=== PATIENT | male | born 1995 | race Hispanic/Latino ===

== ENCOUNTER 2017-10-20 00:36 | Emergency (ER) | payer OTHER ==
[2017-10-20] MEDS ORDERED: METOCLOPRAMIDE 5 MG TAB ONE (02:05)
[2017-10-20] MEDS ORDERED: DIPHENHYDRAMINE 25 MG TAB/CAP ONE (02:05)
[2017-10-20] MEDS ORDERED: KETOROLAC 30 MG/ML INJ ONE (02:05)
--- NOTE | 2017-10-20 04:49 | EDPHYS ---
Physician Documentation [facility] Name: Ishaan Savage Age: 21 yrs Sex: Male : 1995 Arrival Date: 10/20/2017 Time: 00:40 Bed 20 Private MD: ED Physician Jose J Purvis HPI: 10/20 01:53 This 21 yrs old Male presents to ER via Ambulatory with complaints of Headache.ps1 01:53 The patient complains of pain to the left presybeterian. The patient describes the headache as ps1 throbbing. Onset: The symptoms/episode began/occurred at 21:30. Associated signs and symptoms: Pertinent positives: Photophobia Pertinent negatives: dizziness, fever, sinus tenderness, vomiting, weakness. Severity of symptoms: At its worst the pain was moderate, in the emergency department the pain has improved, moderately. Headache History: Denies prior headaches. the symptoms are aggravated by lights, noise. 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 . Historical: - Allergies: 00:57 No Known Allergies; ao - Home Meds: 00:57 None [Active]; ao - Immunization history:: Adult Immunizations up to date. - Social history:: Smoking status: Patient uses tobacco products. ROS: 01:53 Constitutional: Negative for fever, chills, and weight loss, Eyes: Negative for injury, ps1 pain, redness, and discharge, ENT: Negative for injury, pain, and discharge, Neck: Negative for injury, pain, and swelling, Cardiovascular: Negative for chest pain, palpitations, and edema, Respiratory: Negative for shortness of breath, cough, wheezing, and pleuritic chest pain, Abdomen/GI: Negative for abdominal pain, nausea, vomiting, diarrhea, and constipation, Back: Negative for injury and pain, MS/Extremity: Negative for injury and deformity, Skin: Negative for injury, rash, and discoloration. 01:53 Neuro: Positive for headache. Exam: 01:53 Constitutional: This is a well developed, well nourished patient who is awake, alert, ps1 and in no acute distress. Head/Face: Normocephalic, atraumatic. Eyes: Pupils equal round and reactive to light, extra-ocular motions intact. Lids and lashes normal. Conjunctiva and sclera are non-icteric and not injected. ENT: Nares patent. No nasal discharge, no septal abnormalities noted. Tympanic membranes are normal and external auditory canals are clear. Oropharynx with no redness, swelling, or masses, exudates, or evidence of obstruction, uvula midline. Mucous membranes moist. Neck: Trachea midline, no thyromegaly or masses palpated, and no cervical lymphadenopathy. Supple, full range of motion without nuchal rigidity, or vertebral point tenderness. No Meningismus. Chest/axilla: Normal chest wall appearance and motion. Nontender with no deformity. No lesions are appreciated. Cardiovascular: Regular rate and rhythm. No gallops, murmurs, or rubs. Normal PMI, no JVD. No pulse deficits. Respiratory: Lungs have equal breath sounds bilaterally, clear to auscultation and percussion. No rales, rhonchi or wheezes noted. No increased work of breathing, no retractions or nasal flaring. Abdomen/GI: Soft, non-tender, with normal bowel sounds. No distension or tympany. No guarding or rebound. No evidence of tenderness throughout. MS/ Extremity: Pulses equal, no cyanosis. Neurovascular intact. Full, normal range of motion. Neuro: Awake and alert, GCS 15, oriented to person, place, time, and situation. Cranial nerves II-XII grossly intact. Sensory grossly intact. Vital Signs: 00:55 BP 127 / 90; Pulse 63; Resp 16; Temp 97.9; Pulse Ox 97% on R/A; Weight 86.18 kg (R); ao Height 5 ft. 7 in. (170.18 cm) (R); Pain 10/10; 01:30 BP 108 / 75; Pulse 66; Resp 16; Pulse Ox 98% on R/A; Pain 0/10; ao 02:27 BP 120 / 93; Pulse 69; Resp 16; Pulse Ox 98% on R/A; Pain 0/10; ao 00:55 Body Mass Index 29.76 (86.18 kg, 170.18 cm) ao MDM: 01:53 Data reviewed: vital signs, nurses notes. Medication response:. ps1 02:33 Patient medically screened. ps1 Administered Medications: 02:24 Drug: Reglan 10 mg Route: PO; ao 03:28 Follow up: Response: No adverse reaction ao 02:24 Drug: Benadryl 50 mg Route: PO; ao 03:28 Follow up: Response: No adverse reaction ao 02:25 Drug: TORadol 30 mg Route: IM; Site: right gluteus; ao 03:28 Follow up: Response: No adverse reaction ao Disposition: 10/20/17 03:17 Discharged to Home. Impression: Migraine. - Condition is Stable. - Discharge Instructions: Migraine Headache. - Work release form, Medication Reconciliation Form, Thank You Letter, Antibiotic Education, Prescription Opioid Use form. - Follow up: Private Physician; When: As needed; Reason: Recheck today's complaints, Continuance of care, Re-evaluation by your physician. Follow up: Emergency Department; When: As needed; Reason: Fever > 102 F, Worsening of condition. - Problem is new. - Symptoms have improved. Signatures: Harley Ballesteros RN RN ao Singer, Phillip, MD MD ps1
--- NOTE | 2017-10-20 04:49 | ER ---
Nurse's Notes [facility] Name: Ishaan Savage Age: 21 yrs Sex: Male : 1995 Arrival Date: 10/20/2017 Time: 00:40 Bed 20 Private MD: Diagnosis: Migraine Presentation: 10/20 00:52 Presenting complaint: Patient states: "I have a headache that started few hours ago." ao Patient describes his headache in the frontal area as sharp that comes and goes. Patient is positive for nausea. Patient rates his pain at 10/10 in a pain scale. Transition of care: patient was not received from another setting of care. Onset of symptoms was October 19, 2017 at 21:00. Initial Sepsis Screen: Does the patient meet any 2 criteria? No. Patient's initial sepsis screen is negative. Does the patient have a suspected source of infection? No. Patient's initial sepsis screen is negative. Care prior to arrival: Medication(s) given: Tylenol, 325 mg. 00:52 Method Of Arrival: Ambulatory ao 00:52 Acuity: NAM 3 ao Triage Assessment: 00:57 Headache History: Denies prior headaches. General: Appears in no apparent distress. ao comfortable, Behavior is calm, cooperative, appropriate for age. General: Reports Headache. Pain: Complains of pain in Headache Pain currently is 10 out of 10 on a pain scale. Pain began 3 hours ago. Also complains of no other associated symptoms. EENT: No signs and/or symptoms were reported regarding the EENT system. Neuro: Level of Consciousness is awake, alert, obeys commands, Oriented to person, place, time, situation, Moves all extremities. Speech is normal, Facial symmetry appears normal, Pupils are PERRLA. Cardiovascular: Capillary refill < 3 seconds Patient's skin is warm and dry. Respiratory: Airway is patent Respiratory effort is even, unlabored, Respiratory pattern is regular, symmetrical. GI: No signs and/or symptoms were reported involving the gastrointestinal system. : No signs and/or symptoms were reported regarding the genitourinary system. Derm: Skin is intact, Skin temperature is warm. Musculoskeletal: No signs and/or symptoms reported regarding the musculoskeletal system. Historical: - Allergies: 00:57 No Known Allergies; ao - Home Meds: 00:57 None [Active]; ao - Immunization history:: Adult Immunizations up to date. - Social history:: Smoking status: Patient uses tobacco products. Screenin:57 Abuse screen: Denies threats or abuse. Denies injuries from another. Nutritional ao screening: No deficits noted. Tuberculosis screening: No symptoms or risk factors identified. Fall Risk None identified. Assessment: 01:20 General: See triage note for full assessment. ao 02:26 Reassessment: Patient appears in no apparent distress at this time. No changes from ao previously documented assessment. Patient and/or family updated on plan of care and expected duration. Pain level reassessed. Patient is alert, oriented x 3, equal unlabored respirations, skin warm/dry/pink. 02:26 Pain: Complains of pain in Headache. ao Vital Signs: 00:55 BP 127 / 90; Pulse 63; Resp 16; Temp 97.9; Pulse Ox 97% on R/A; Weight 86.18 kg (R); ao Height 5 ft. 7 in. (170.18 cm) (R); Pain 10/10; 01:30 BP 108 / 75; Pulse 66; Resp 16; Pulse Ox 98% on R/A; Pain 0/10; ao 02:27 BP 120 / 93; Pulse 69; Resp 16; Pulse Ox 98% on R/A; Pain 0/10; ao 00:55 Body Mass Index 29.76 (86.18 kg, 170.18 cm) ao ED Course: 00:40 Patient arrived in ED. ds1 00:52 Harley Ballesteros, RN is Primary Nurse. ao 00:55 Triage completed. ao 00:55 Arm band placed on right wrist. Patient placed in an exam room, Patient notified of ao wait time. 00:59 Patient has correct armband on for positive identification. Pulse ox on. NIBP on. ao 01:48 Jose J Purvis MD is Attending Physician. ps1 03:29 No provider procedures requiring assistance completed. Patient did not have IV access ao during this emergency room visit. Administered Medications: 02:24 Drug: Reglan 10 mg Route: PO; ao 03:28 Follow up: Response: No adverse reaction ao 02:24 Drug: Benadryl 50 mg Route: PO; ao 03:28 Follow up: Response: No adverse reaction ao 02:25 Drug: TORadol 30 mg Route: IM; Site: right gluteus; ao 03:28 Follow up: Response: No adverse reaction ao Outcome: 03:17 Discharge ordered by . ps1 03:29 Discharged to home ambulatory. ao 03:29 Condition: stable 03:29 Discharge instructions given to patient, Instructed on discharge instructions, follow up and referral plans. Demonstrated understanding of instructions, follow-up care, medications. 03:30 Patient left the ED. ao Signatures: Summer Marcial ds1 Harley Ballesteros RN RN ao Jose J Purvis MD MD ps1
== END 2017-10-20 03:30 | disposition home or self-care (01) ==
LOC: ER 00:36
DX: G43.909 Migraine, unspecified, not intractable, without status migrainosus (principal); F17.220 Nicotine dependence, chewing tobacco, uncomplicated
CPT/HCPCS: 96372; 99283